=== PATIENT | male | born 1955 | race Caucasian/White ===

== ENCOUNTER 2019-08-23 08:07 | Outpatient (CLI) | payer MEDICARE, SELFPAY ==
[2019-08-23 17:21] LABS: Basophils Percent Auto 0.4 % (0.2-1.2); Eosinophils Absolute Auto 0.1 K/mm3 (0-0.3); Eosinophils Percent Auto 1.6 % (0-4.4); Hemoglobin 13.9 g/dL (14.0-18.0); Immature Granulocyte Absolute 0.04 K/mm3 (0.00-0.031); Immature Granulocyte Percent A 0.4 % (0-0.5); Lymphocytes Absolute Auto 2.33 K/mm3 (0.9-3.2); Lymphocytes Percent Auto 26.2 % (18.3-44.2); Mean Corpuscular HGB Conc 32.3 g/dl (32-36); Mean Corpuscular Hemoglobin 29.1 pg (26-34); Mean Corpuscular Volume 90.1 fl (80-100); Mean Platelet Volume 9.9 fl (7.4-10.4); Monocytes Absolute Auto 0.7 K/mm3 (0.1-0.6); Monocytes Percent Auto 7.4 % (2.6-8.5); Neutrophils Absolute Auto 5.7 K/mm3 (1.3-6.7); Platelet Count Result 312 k/mm3 (150-375); Red Blood Count 4.77 M/mm3 (4.6-6.20); Red Cell Distribution Width 13.5 % (11.5-14.5); White Blood Count 8.9 K/mm3 (4.5-10.0)
[2019-08-23 17:23] LABS: Add Urine Microscopic? NO; Appearance Urine Clear (Clear); Bilirubin Urine Negative (Negative); Blood Urine Negative (Negative); Color Urine Yellow (Yellow); Glucose Urine UA Negative (Negative); Ketones Urine Negative (Negative); Leukocyte Esterase Ur Negative LEU/UL (Negative); Nitrate Urine Negative (Negative); Protein Urine Negative (Negative); Urobilinogen Urine Negative mg/dL (<2.0)
[2019-08-23 17:26] LABS: Specific Grav Ur 1.031 (1.001-1.035)
[2019-08-23 17:28] LABS: Alanine Aminotransferase 19 U/L (4-50); Albumin Level 4.2 g/dL (3.5-5.1); Alkaline Phosphatase 50 U/L (38-126); Aspartate Amino Transferase 22 U/L (17-59); Bilirubin,Total 0.4 mg/dL (0.2-1.3); Blood Urea Nitrogen 20 mg/dL (9-20); Carbon Dioxide 23 mmol/L (22-30); Chloride 109 mmol/L (98-107); Cholesterol 136 mg/dL (0-200); Estimated Glomerular Filt Rate > 60; Glucose 107 mg/dL (75-110); HDL Direct 36 mg/dL; Potassium 4.6 mmol/L (3.4-5.0); Sodium 139 mmol/L (137-145); Triglycerides 98 mg/dL (<150)
[2019-08-23 17:38] LABS: LDL Cholesterol Direct 86 mg/dL
[2019-08-23 17:44] LABS: Vitamin D 25 Hydroxy 23.4 ng/mL
[2019-08-23 18:33] LABS: Folic Acid 8.6 ng/mL (2.76->20)
[2019-08-23 18:59] LABS: IFOB Positive Control Positive; Immunochemical Fecal Occult Bl Negative (N)
[2019-08-26 14:39] LABS: Testosterone Free 37.7 pg/mL (35.0-155.0); Testosterone Total 304 ng/dL (250-1100)
== END 2019-08-23 08:08 | disposition home or self-care (01) ==
PROVIDERS: PCP Family Medicine; Visit Provider Family Medicine
DX: I51.9 Heart disease, unspecified (principal); R53.83 Other fatigue; I35.0 Nonrheumatic aortic (valve) stenosis; F32.9 Major depressive disorder, single episode, unspecified; R09.89 Other specified symptoms and signs involving the circulatory and respiratory systems; Z82.62 Family history of osteoporosis; J44.9 Chronic obstructive pulmonary disease, unspecified; I10 Essential (primary) hypertension; Z79.899 Other long term (current) drug therapy
CPT/HCPCS: 36415; 80053; 80061; 81003; 82274; 82306; 82607; 82746; 84402; 84403; 84443; 85025

== ENCOUNTER 2021-04-17 15:22 | Outpatient (CLI) | payer MEDICARE, SELFPAY ==
[2021-04-17 18:36] LABS: T4 Thyroxine 7.22 ug/dL (5.53-11.0)
[2021-04-17 18:50] LABS: Prostate Specific Antigen 0.7 ng/mL (< OR = 4.0)
[2021-04-17 19:32] LABS: Vitamin D 25 Hydroxy 36.6 ng/mL
[2021-04-20 07:52] LABS: Triiodothyronine T3 Free 3.2 pg/mL (2.3-4.2)
== END 2021-04-17 15:23 | disposition home or self-care (01) ==
PROVIDERS: PCP Family Medicine; Visit Provider Family Medicine
DX: E03.9 Hypothyroidism, unspecified (principal); F17.200 Nicotine dependence, unspecified, uncomplicated; F32.9 Major depressive disorder, single episode, unspecified; I35.0 Nonrheumatic aortic (valve) stenosis; I51.9 Heart disease, unspecified; I73.9 Peripheral vascular disease, unspecified; J44.9 Chronic obstructive pulmonary disease, unspecified; R53.83 Other fatigue; Z95.5 Presence of coronary angioplasty implant and graft; E55.9 Vitamin D deficiency, unspecified; Z12.5 Encounter for screening for malignant neoplasm of prostate
CPT/HCPCS: 36415; 82306; 84153; 84436; 84443; 84481; G0103

== ENCOUNTER 2021-08-28 00:21 | Day surgery (SDC) | payer MEDICARE, SELFPAY ==
[2021-08-20 15:46] VITALS: BMI 26.0
--- NOTE | 2021-08-27 17:38 | PM.HPGS ---
History of Present Illness History of Present Illness Consent: Risks, benefits, and alternatives have been discussed and questions answered. Patient agrees to proceed with procedure. Chief complaint: positive cologuard Narrative: Marcell Rubio is a 66 year old male Referred for colon cancer screening. He r underwent a Cologuard test last year that was positive Review of Systems Review of Systems: All systems reviewed & are unremarkable except as noted in HPI and below PMFSH Past Medical History Medical History COPD (chronic obstructive pulmonary disease) Depression Heart disease Hernia Hypertension Surgical History Surgical History Stented coronary artery Family History Family History Mother Lung cancer Father H/O asbestosis Social History Social History Smoking packs per day: 2 Smoking cigarettes per day: 40.0 Years smoked: 40 Smoking pack-years: 80.00 Smoking status: Current every day smoker Tobacco type: cigarettes Alcohol intake: never Substance use: never Substance use type: does not use Living arrangements: with family Spiritual care concerns: No Meds Home Medications and Allergies Home Medications Medication Instructions Recorded Confirmed Type albuterol sulfate 90 mcg/actuation 1 puff INHALATION Q4H PRN 08/22/19 08/20/21 History aerosol inhaler aspirin 81 mg tablet,delayed 81 mg PO DAILY 08/22/19 08/20/21 History release atorvastatin 40 mg tablet 40 mg PO DAILY 08/22/19 08/20/21 History clopidogrel 75 mg tablet 75 mg PO DAILY 08/22/19 08/28/21 History lisinopril 10 mg tablet 10 mg PO DAILY #90 tablet 02/19/21 08/20/21 Rx liothyronine 5 mcg tablet 5 mcg PO DAILY #90 tablet 06/03/21 08/20/21 Rx Adults Multivitamin 1 cap PO DAILY 08/20/21 08/20/21 History venlafaxine 75 mg PO QAM 08/20/21 08/20/21 History Allergies Allergy/AdvReac Type Severity Reaction Status Date / Time No Known Allergies Allergy Unverified 08/28/21 09:53 Exam Resp: Auscultation: clear to auscultation bilaterally Cardio: Rate: regular rate Rhythm: regular rhythm GI: GI Palp: Yes Soft to palpation and No Tenderness to palpation present (GI) Assessment and Plan Assessment and plan (1) Colon cancer screening: Code(s): Z12.11 - Encounter for screening for malignant neoplasm of colon Status: Acute Assessment and Plan: Colonoscopy with possible biopsy or polypectomy or cautery or injection of substances.
[2021-08-28 09:54] VITALS: BP 141/70; PULSE 84; RESP 16; TEMP 37.3; O2SAT 98
[2021-08-28] MEDS: LACTATED RINGERS 1,000 ML 150 ML IV CONT (10:03)
--- NOTE | 2021-08-28 10:18 | P.PNAN_ITS ---
Anes - Initial Pre Proc Eval Procedure: Operation Date: 08/28/21 11:00 Proposed Procedures p Colonoscopy - Chava Thibodeaux MD Date/Time: 08/28/21 10:18 Surgeon: Chava Thibodeaux MD Pre Op Diagnosis: positive cologuard Patient Data Age: 66 Gender: M Height: 1.75 m Weight: 76.3 kg Last Vital Signs Temp 37.3 C 08/28/21 09:54 Pulse 84 08/28/21 09:54 Resp 16 08/28/21 09:54 BP 141/70 H 08/28/21 09:54 Pulse Ox 98 08/28/21 09:54 Allergies Allergy/AdvReac Type Severity Reaction Status Date / Time No Known Allergies Allergy Unverified 08/28/21 09:53 Home Medications Medication Instructions Recorded Confirmed Type albuterol sulfate 90 mcg/actuation 1 puff INHALATION Q4H PRN 08/22/19 08/20/21 History aerosol inhaler aspirin 81 mg tablet,delayed 81 mg PO DAILY 08/22/19 08/20/21 History release atorvastatin 40 mg tablet 40 mg PO DAILY 08/22/19 08/20/21 History clopidogrel 75 mg tablet 75 mg PO DAILY 08/22/19 08/28/21 History lisinopril 10 mg tablet 10 mg PO DAILY #90 tablet 02/19/21 08/20/21 Rx liothyronine 5 mcg tablet 5 mcg PO DAILY #90 tablet 06/03/21 08/20/21 Rx Adults Multivitamin 1 cap PO DAILY 08/20/21 08/20/21 History venlafaxine 75 mg PO QAM 08/20/21 08/20/21 History Patient hx anesthesia problems: none Family hx anesthesia problems: none Results Review: All pre-operative results and documents have been reviewed as part of the pre-operative evaluation. [facility] [place] Past Medical History Medical History COPD (chronic obstructive pulmonary disease) Depression Heart disease Hernia Hypertension Surgical History Surgical History Stented coronary artery Family History Family History Mother Lung cancer Father H/O asbestosis Social History Social History Smoking packs per day: 2 Smoking cigarettes per day: 40.0 Years smoked: 40 Smoking pack-years: 80.00 Smoking status: Current every day smoker Tobacco type: cigarettes Alcohol intake: never Substance use: never Substance use type: does not use Living arrangements: with family Spiritual care concerns: No Anes - Eval Final PreProcedure Day of Procedure 08/28/21 10:18 Patient weight: normal Heart: regular rate and rhythm and murmur (II/ SM) Lungs: clear to auscultation and wheezes Airway: Mallampati scale class II Neurological: alert and oriented Last oral intake: >/= 8 hours ASA classification: III Emergent: no Anesthetic plan: proceed Anesthesia type and monitoring: general GIVS and standard monitoring Results Review: All pre-operative results and documents have been reviewed as part of the pre-operative evaluation. Informed Consent: The patient's anesthetic plan and its attendant risks and benefits were discussed with the patient/family/POA. Questions were solicited and answers provided to the satisfaction of the patient/family/POA.
[2021-08-28 11:18] VITALS: BP 146/76; PULSE 70; RESP 22; O2SAT 99
[2021-08-28 11:28] VITALS: BP 149/73; PULSE 69; RESP 21; O2SAT 98
[2021-08-28 11:38] VITALS: BP 155/77; PULSE 66; RESP 16; O2SAT 99
== END 2021-08-28 11:46 | disposition home or self-care (01) ==
PROVIDERS: PCP Family Medicine; Visit Provider Internal Medicine Gastroenterology
PROC: 0DJD8ZZ Inspection of Lower Intestinal Tract, Via Natural or Artificial Opening Endoscopic (ICD-10-PCS; CPT 45378; principal; 2021-08-28 11:00)
DX: Z12.11 Encounter for screening for malignant neoplasm of colon (principal); K57.30 Diverticulosis of large intestine without perforation or abscess without bleeding; R19.5 Other fecal abnormalities; I11.9 Hypertensive heart disease without heart failure; J44.9 Chronic obstructive pulmonary disease, unspecified; F32.9 Major depressive disorder, single episode, unspecified; Z95.5 Presence of coronary angioplasty implant and graft; F17.210 Nicotine dependence, cigarettes, uncomplicated; Z79.82 Long term (current) use of aspirin; Z79.51 Long term (current) use of inhaled steroids; Z79.02 Long term (current) use of antithrombotics/antiplatelets
CPT/HCPCS: G0121; J2704; J7120

== ENCOUNTER 2022-07-10 13:27 | Outpatient (CLI) | payer MEDICARE, SELFPAY ==
[2022-07-10 19:29] LABS: Hematocrit 44.4 % (42.0-52.0); Hemoglobin 14.6 g/dL (14.0-18.0); Mean Corpuscular HGB Conc 32.9 g/dl (32-36); Mean Corpuscular Hemoglobin 29.4 pg (26-34); Mean Corpuscular Volume 89.3 fl (80-100); Mean Platelet Volume 10.1 fl (7.4-10.4); Platelet Count Result 256 k/mm3 (150-375); Red Blood Count 4.97 M/mm3 (4.6-6.20); Red Cell Distribution Width 14.1 % (11.5-14.5); White Blood Count 7.1 K/mm3 (4.5-10.0)
[2022-07-10 20:10] LABS: Alanine Aminotransferase 29 U/L (6-50); Albumin Level 3.9 g/dL (3.5-5.1); Alkaline Phosphatase 56 U/L (38-126); Anion Gap 4 mmol/L (8-16); Aspartate Amino Transferase 42 U/L (17-59); Bilirubin,Total 0.4 mg/dL (0.2-1.3); Blood Urea Nitrogen 14 mg/dL (9-20); Calcium 8.3 mg/dL (8.4-10.2); Carbon Dioxide 30 mmol/L (22-30); Chloride 110 mmol/L (98-107); Cholesterol 95 mg/dL (0-200); Estimated Glomerular Filt Rate > 60; Glucose 108 mg/dL (65-110); HDL Direct 30 mg/dL; Potassium 3.7 mmol/L (3.4-5.0); Sodium 144 mmol/L (137-145); Triglycerides 147 mg/dL (<150)
[2022-07-10 20:20] LABS: LDL Cholesterol Direct 43 mg/dL
== END 2022-07-10 13:28 | disposition home or self-care (01) ==
PROVIDERS: PCP Family Medicine; Visit Provider Family Medicine
DX: E03.9 Hypothyroidism, unspecified (principal); I10 Essential (primary) hypertension; J44.9 Chronic obstructive pulmonary disease, unspecified; Z95.5 Presence of coronary angioplasty implant and graft
CPT/HCPCS: 36415; 80053; 80061; 84443; 85027

== ENCOUNTER 2022-11-24 10:55 | Outpatient (CLI) | payer MEDICARE, SELFPAY ==
[2022-11-24 19:02] LABS: Basophils Percent Auto 0.4 % (0.2-1.2); Eosinophils Absolute Auto 0.1 K/mm3 (0-0.3); Eosinophils Percent Auto 1.4 % (0-4.4); Hematocrit 48.6 % (42.0-52.0); Hemoglobin 15.3 g/dL (14.0-18.0); Immature Granulocyte Absolute 0.03 K/mm3 (0.00-0.031); Immature Granulocyte Percent A 0.4 % (0-0.5); Lymphocytes Absolute Auto 2.18 K/mm3 (0.9-3.2); Mean Corpuscular HGB Conc 31.5 g/dl (32-36); Mean Corpuscular Hemoglobin 29.1 pg (26-34); Mean Corpuscular Volume 92.4 fl (80-100); Mean Platelet Volume 10.3 fl (7.4-10.4); Monocytes Absolute Auto 0.7 K/mm3 (0.1-0.6); Monocytes Percent Auto 8.2 % (2.6-8.5); Neutrophils Absolute Auto 5.4 K/mm3 (1.3-6.7); Neutrophils Percent Auto 63.6 % (45.5-73.1); Platelet Count Result 264 k/mm3 (150-375); Red Blood Count 5.26 M/mm3 (4.6-6.20); Red Cell Distribution Width 14.3 % (11.5-14.5); White Blood Count 8.4 K/mm3 (4.5-10.0)
[2022-11-24 21:01] LABS: Alanine Aminotransferase 30 U/L (6-50); Albumin Level 4.4 g/dL (3.5-5.1); Alkaline Phosphatase 57 U/L (38-126); Anion Gap 4 mmol/L (8-16); Aspartate Amino Transferase 55 U/L (17-59); Bilirubin,Total 0.6 mg/dL (0.2-1.3); Blood Urea Nitrogen 20 mg/dL (9-20); Calcium 9.1 mg/dL (8.4-10.2); Carbon Dioxide 33 mmol/L (22-30); Chloride 107 mmol/L (98-107); Cholesterol 101 mg/dL (0-200); Estimated Glomerular Filt Rate > 60; Glucose 100 mg/dL (65-110); HDL Direct 33 mg/dL; Potassium 5.1 mmol/L (3.4-5.0); Sodium 144 mmol/L (137-145); Triglycerides 90 mg/dL (<150)
[2022-11-24 21:12] LABS: LDL Cholesterol Direct 51 mg/dL
[2022-11-24 21:23] LABS: Vitamin D 25 Hydroxy 24.5 ng/mL
[2022-11-24 21:30] LABS: Prostate Specific Antigen 0.6 ng/mL (< OR = 4.0)
[2022-11-29 10:21] LABS: Testosterone Free 35.3 pg/mL (35.0-155.0); Testosterone Total 307 ng/dL (250-1100)
== END 2022-11-24 10:56 | disposition home or self-care (01) ==
PROVIDERS: PCP Family Medicine; Visit Provider Family Medicine
DX: R91.8 Other nonspecific abnormal finding of lung field (principal); F17.210 Nicotine dependence, cigarettes, uncomplicated; E03.9 Hypothyroidism, unspecified; Z95.5 Presence of coronary angioplasty implant and graft; R09.89 Other specified symptoms and signs involving the circulatory and respiratory systems; I35.0 Nonrheumatic aortic (valve) stenosis; R53.83 Other fatigue; J44.9 Chronic obstructive pulmonary disease, unspecified; I10 Essential (primary) hypertension; F32.9 Major depressive disorder, single episode, unspecified; Z12.5 Encounter for screening for malignant neoplasm of prostate; E55.9 Vitamin D deficiency, unspecified
CPT/HCPCS: 36415; 80053; 80061; 82306; 84153; 84402; 84403; 84443; 85025; G0103

== ENCOUNTER 2023-03-04 09:04 | Outpatient (CLI) | payer MEDICARE, SELFPAY ==
[2023-03-08 16:47] LABS: Testosterone Free 46.9 pg/mL (35.0-155.0); Testosterone Total 388 ng/dL (250-1100)
== END 2023-03-04 09:05 | disposition home or self-care (01) ==
PROVIDERS: PCP Family Medicine; Visit Provider Family Medicine
DX: R79.89 Other specified abnormal findings of blood chemistry (principal); Z87.891 Personal history of nicotine dependence
CPT/HCPCS: 36415; 84402; 84403

== ENCOUNTER 2023-06-22 10:48 | Outpatient (CLI) | payer MEDICARE, SELFPAY ==
[2023-06-22 18:44] LABS: Mean Corpuscular HGB Conc 31.9 g/dl (32-36); Mean Corpuscular Hemoglobin 29.5 pg (26-34); Mean Corpuscular Volume 92.3 fl (80-100); Mean Platelet Volume 9.7 fl (7.4-10.4); Platelet Count Result 282 k/mm3 (150-375); Red Blood Count 5.09 M/mm3 (4.6-6.20); Red Cell Distribution Width 13.6 % (11.5-14.5); White Blood Count 8.7 K/mm3 (4.5-10.0)
[2023-06-22 20:58] LABS: Alanine Aminotransferase 27 U/L (6-50); Albumin Level 4.2 g/dL (3.5-5.1); Alkaline Phosphatase 55 U/L (38-126); Anion Gap 6 mmol/L (8-16); Aspartate Amino Transferase 60 U/L (17-59); Bilirubin,Total 0.6 mg/dL (0.2-1.3); Blood Urea Nitrogen 18 mg/dL (9-20); Calcium 8.9 mg/dL (8.4-10.2); Carbon Dioxide 29 mmol/L (22-30); Chloride 104 mmol/L (98-107); Estimated Glomerular Filt Rate > 60; Glucose 96 mg/dL (65-110); Potassium 4.4 mmol/L (3.4-5.0); Sodium 139 mmol/L (137-145); Vitamin D 25 Hydroxy 17.7 ng/mL
[2023-06-25 21:06] LABS: Testosterone Free 63.1 pg/mL (35.0-155.0); Testosterone Total 410 ng/dL (250-1100)
== END 2023-06-22 10:49 | disposition home or self-care (01) ==
PROVIDERS: PCP Family Medicine; Visit Provider Family Medicine
DX: J44.9 Chronic obstructive pulmonary disease, unspecified (principal); E55.9 Vitamin D deficiency, unspecified; I35.0 Nonrheumatic aortic (valve) stenosis; I51.9 Heart disease, unspecified; I10 Essential (primary) hypertension; E03.9 Hypothyroidism, unspecified; K46.9 Unspecified abdominal hernia without obstruction or gangrene; Z95.5 Presence of coronary angioplasty implant and graft; F17.200 Nicotine dependence, unspecified, uncomplicated; R79.89 Other specified abnormal findings of blood chemistry
CPT/HCPCS: 36415; 80053; 82306; 84402; 84403; 84443; 85027

== ENCOUNTER 2023-12-28 13:58 | Outpatient (CLI) | payer MEDICARE, SELFPAY ==
--- NOTE | ~2023-12-28 | XR_ITS ---
XR shoulder RT min 2V Ordering provider: Nehal Siu APRN History: . Right shoulder pain, limited movement, no injury . Comparison: None. FINDINGS: BONES: No acute fracture or dislocation. JOINT SPACES: The acromioclavicular joint shows osteoarthritic changes. The glenohumeral joint is nor mal. SOFT TISSUES: Normal. IMPRESSION: No acute osseous abnormality right shoulder. Reviewed, dictated and finalized at location A.
[2023-12-28 19:48] LABS: Hematocrit 46.3 % (42.0-52.0); Hemoglobin 14.6 g/dL (14.0-18.0); Mean Corpuscular HGB Conc 31.5 g/dl (32-36); Mean Corpuscular Hemoglobin 30.3 pg (26-34); Mean Corpuscular Volume 96.1 fl (80-100); Mean Platelet Volume 10.4 fl (7.4-10.4); Platelet Count Result 269 k/mm3 (150-375); Red Blood Count 4.82 M/mm3 (4.6-6.20); White Blood Count 13.6 K/mm3 (4.5-10.0)
[2023-12-28 19:54] LABS: Appearance Urine Clear (Clear); Bilirubin Urine Negative (Negative); Blood Urine Negative (Negative); Color Urine Yellow (Yellow); Glucose Urine UA Negative (Negative); Ketones Urine Negative (Negative); Leukocyte Esterase Ur Negative LEU/UL (Negative); Nitrate Urine Negative (Negative); Protein Urine Negative (Negative)
[2023-12-28 20:07] LABS: Add Urine Microscopic? NO
[2023-12-28 20:59] LABS: Prostate Specific Antigen 0.6 ng/mL (< OR = 4.0)
[2023-12-28 22:20] LABS: Vitamin D 25 Hydroxy 37.8 ng/mL
[2023-12-28 22:53] LABS: Alanine Aminotransferase 17 U/L (6-50); Albumin Level 4.8 g/dL (3.5-5.1); Alkaline Phosphatase 59 U/L (38-126); Anion Gap 10 mmol/L (4-12); Aspartate Amino Transferase 32 U/L (17-59); Bilirubin,Total 0.5 mg/dL (0.2-1.3); Blood Urea Nitrogen 27 mg/dL (9-20); Calcium 9.6 mg/dL (8.4-10.2); Carbon Dioxide 28 mmol/L (22-30); Chloride 103 mmol/L (98-107); Cholesterol 126 mg/dL (0-200); Estimated Glomerular Filt Rate > 60; Glucose 99 mg/dL (65-110); HDL Direct 44 mg/dL; Potassium 4.5 mmol/L (3.4-5.0); Sodium 141 mmol/L (137-145); Triglycerides 167 mg/dL (<150)
[2023-12-28 23:00] LABS: LDL Cholesterol Direct 67 mg/dL
== END 2023-12-28 13:59 | disposition home or self-care (01) ==
PROVIDERS: PCP Family Medicine; Visit Provider Nurse Practitioner Family
DX: M25.511 Pain in right shoulder (principal); E55.9 Vitamin D deficiency, unspecified; Z12.5 Encounter for screening for malignant neoplasm of prostate; E03.9 Hypothyroidism, unspecified; Z95.5 Presence of coronary angioplasty implant and graft; F17.200 Nicotine dependence, unspecified, uncomplicated; I73.9 Peripheral vascular disease, unspecified; R09.89 Other specified symptoms and signs involving the circulatory and respiratory systems; I35.0 Nonrheumatic aortic (valve) stenosis; I10 Essential (primary) hypertension; F32.9 Major depressive disorder, single episode, unspecified; J44.9 Chronic obstructive pulmonary disease, unspecified; R91.8 Other nonspecific abnormal finding of lung field; R19.5 Other fecal abnormalities; Z79.899 Other long term (current) drug therapy
CPT/HCPCS: 36415; 73030; 80053; 80061; 81003; 82306; 84153; 84443; 85027; G0103

== ENCOUNTER 2025-01-02 10:48 | Outpatient (CLI) | payer MEDICARE, SELFPAY ==
--- OUTSIDE RECORDS SUMMARY | 2025-01-02 10:53 | XMS_ITS | Clinical Summary ---
Author Organization [facility] Address [address] [place] [address] Phone Care Team Providers Care Drainage Engineer Name Role Phone Marcell Euceda DO Primary Care Provider [phone] Social History Tobacco Use Types Packs/Day Years Used Date Smoking Tobacco: Never Assessed Sex and Gender Information Value Date Recorded Sex Assigned at Not on file Legal Sex Male 8:41 PM CDT Gender Identity Not on file Sexual Orientation Not on file Plan of Treatment Health Maintenance Due Date Last Done Comments Hepatitis C Virus (HCV) Screening 1955 TdaP Immunization 1955 Cologuard 1999 Colonoscopy 1999 Colorectal Cancer Screening 1999 Immunochemical Fecal Occult Blood 1999 Pneumococcal Immunization (5 0+ years) (1 of 1 - PCV) 01/07/2004 Zoster Immunization (1 of 2) 01/07/2004 SARS-COV-2 Immunization ( season) 2024 05/18/2021, 09/13/2020, 08/15/2020 Influenza Immunization (#1) 2025 Respiratory Syncytial Virus (RSV) Immunization (Adult) (1 - 1-dose 75+ series) 2029 Hepatitis B Immunization Aged Out No longer eligible based on patient's age to complete this topic Human Papillomavirus (HPV) Immunization Aged Out No longer eligible b ased on patient's age to complete this topic Meningococcal Immunization (ACWY) Aged Out No longer eligible b ased on patient's age to complete this topic Rotavirus Immunization Aged Out No lo nger eligible based on patient's age to complete this topic Insurance MEDICARE [facility] on file Care Teams Drainage Engineer Relationship Specialty Start Date End Date Marcell Euceda DO [address] [place] [address] PCP - General Family Medicine 02/24/20
--- OUTSIDE RECORDS SUMMARY | 2025-01-02 10:53 | XMS_ITS | Clinical Summary ---
Author Organization [facility] Address [address] [place] [address] Care Team Providers Care Aviation Engineer Name Role Phone Terell Canela DO Unavailable [phone] Srinivasan Jones MD Unavailable [phone] Marietta Aviles MD Unavailable [phone] Michael Heredia MD Primary Care Provider [phone] Nany Esquivel MD Unavailable [phone] Allergies No known active allergies Medications albuterol HFA (VENTOLIN HFA) 90 mcg/actuation inhalerIndicati ons:Simple chronic bronchitis (HCC) Inhale 2 puffs every 4 (four) hours as needed for wheezing or shortness of breath. 8 g 5 8 Active aspirin 81 mg enteric coated tablet Take 1 tablet (81 mg total) by mouth daily Active liothyronine (CYTOMEL) 5 mcg tablet Take 1 tablet (5 mcg total) by mouth daily Active venlafaxine XR (EFFEXOR-XR) 75 mg 24 hr capsule Take 1 capsule (75 mg total) by mouth daily 2 Active multivitamin capsule Take 1 capsule by mouth daily Active acetaminophen (TYLENOL) 325 mg tablet Take 2 tablets (650 mg total) by mouth every 6 (six) hours as needed (pain) 60 tablet 2 Active traMADoL (ULTRAM) 50 mg tablet Take 1 tablet (50 mg total) by mouth every 4 (four) hours as needed (pain not relieved by tylenol) 27 tablet 2 Active Additional Information Patient not taking.Reported on 01/27/2022 ezetimibe (ZETIA) 10 mg tablet TAKE 1 TABLET(10 MG) BY MOUTH DAILY 30 tablet 11 3 Active lisinopriL (PRINIVIL,ZESTR IL) 5 mg tablet TAKE 2 TABLETS(10 MG) BY MOUTH DAILY 90 tablet 3 4 Active clopidogreL (PLAVIX) 75 mg tablet TAKE 1 TABLET(75 MG) BY MOUTH DAILY 90 tablet 2 4 Active atorvastatin (LIPITOR) 40 mg tablet TAKE 1 TABLET(40 MG) BY MOUTH DAILY 90 tablet 3 5 Active metoprolol tartrate (LOPRESSOR) 25 mg immediate release tablet Take 0.5 tablets (12.5 mg total) by mouth 2 (two) times a day 90 tablet 3 5 Active Active Problems Problem Noted Date Diagnosed Date S/P AVR (aortic valve replacement) 01/27/2022 SOB (shortness of breath) 02/17/2020 Assessment & Plan (02/17/2020 10:32 AM CDT): I plan to further investigate his dyspnea with proBNP value. If this is normal I plan no further cardiovascular evaluation. Bilateral carotid artery stenosis 02/16/2020 Assessment & Plan (02/22/2021 11:03 AM CDT): Patient remains asymptomatic with his carotid disease but I will re-evaluate this with carotid ultrasound as it has been 3 years since we have looked at this Assessment & Plan (02/17/2020 10:32 AM CDT): Patient's carotid ultrasound test was delayed by COVID-19 policies in the radiology department. We will get this rescheduled in call him with those results if no additional attention is required. Smoker 08/15/2019 Assessment & Plan (02/22/2021 11:02 AM CDT): I again stressed the importance of smoking cessation. Because the patient was interested in stopping I spent about 12-15 minutes discussing the importance of smoking and establishing a plan for success. Patient appears mildly motivated toward success. Assessment & Plan (02/17/2020 10:33 AM CDT): I again stressed the importance of smoking cessation. Because the patient was interested in stopping I spent about 12-15 minutes discussing the importance of smoking and establishing a plan for success. Patient appears mildly motivated toward success. Old AR (myocardial infarction) 08/15/2019 Mixed hyperlipidemia 08/15/2019 Presence of drug coated stent in LAD coronary ar susan 08/15/2019 Overview (08/15/2019): LAD FRANNIE using 2.75 x 12 mm synergy stent overlapping with a 2.75 x 8 mm synergy stent(Complicated by plaque shift occluding D1 recanalized restoring flow with 2.25 mm balloon ) Presence of drug coated sten t in left circumflex coronary artery 08/15/2019 Overview (08/15/2019): circumflex FRANNIE using 3.0 x 12 mm synergy stent H/O non-ST elevation myocardial infarction (NSTE AR) 03/18/2018 Assessment & Plan (03/18/2018 4:03 PM CDT): Asx. Managed by Cardiology. Coronary artery disease invo lving [place] coronary artery of [place] heart without angina pectoris 03/18/2018 Assessment & Plan (02/22/2021 11:03 AM CDT): Patient remains free of any symptoms to suggest angina or heart failure. He will continue with aggressive secondary risk factor modification. We did address smoking cessation again today. Assessment & Plan (02/17/2020 10:32 AM CDT): Patient remains free of any symptoms to suggest angina. He will continue with aggressive secondary risk factor modification. In June 2018 his LDL cholesterol was 50. A plan to update this with a more recent lipid profile. Assessment & Plan (03/18/2018 4:03 PM CDT): Coronary artery disease is unchanged. Continue current treatment regimen. Stop smoking. Medication changes per orders. Cardiac status will be reassessed at next [place] appt. Cont Brilinta 90 mg bid, carvedilol 3.125mg bid. lipitor 40mg qd Chronic obstructive pulmonary disease 2014 Overview (09/18/2016): Chronic obstructive lung disease Assessment & Plan (03/18/2018 4:04 PM CDT): COPD is At baseline. Re-start albuterol hfa inh 2 puffs q4h prn. Referred to Pulmonary. Warning signs of respiratory distress were reviewed with the patient. Counseled to avoid exposure to cigarette smoke. Aortic valve stenosis 12/05/2013 Overview (09/18/2016): Aortic stenosis Assessment & Plan (02/22/2021 11:02 AM CDT): Plan to reassess the patient's aortic valve disease is this is not been looked at in the last 3 years. Assessment & Plan (01/31/2018 6:38 AM CDT): Will get repeat echocardiogram to reassess aortic stenosis progression. Cigarette nicotine dependence without complicati on 10/29/2013 Overview (09/18/2016): Tobacco abuse Assessment & Plan (03/18/2018 4:05 PM CDT): Tobacco use is improving with lifestyle modifications. Smoking cessation counseling was provided. Pharmacotherapy was prescribed as ordered. Tobacco use will be reassessed at the next regular appointmentbupropion xl 150 mg qd. Assessment & Plan (01/31/2018 6:38 AM CDT): Discussed tobacco cessation. Will start on Nicoderm patch Discussed Patient will need a screening for lung cancer with a CT of the chest with IV contrast . Will get aortic ultrasound to screen for AAA Moderate episode of recurrent major depressive d isorder 10/29/2013 Overview (09/18/2016): DEPRESSIVE DISORDER NEC Assessment & Plan (03/18/2018 3:58 PM CDT): Psychological condition is worsening. Medication changes per orders. Referral to psychiatry. Psychological condition will be reassessed at the next regular appointment. New start on bupropion xl to help with depression and smoking cessation. Patient referred to Psychiatry for further eval/mgmt. Essential hypertension 10/29/2013 Overview (09/18/2016): Hypertension Assessment & Plan (03/18/2018 4:01 PM CDT): Hypertension is improving with treatment. Dietary sodium restriction. Medication changes per orders. Blood pressure will be reassessed at the next regular appointment. Re-start bp meds lisinopril 5mg po qd, carvedilol 3.125 mg bid Assessment & Plan (01/31/2018 6:36 AM CDT): Blood pressure elevated. Will start on Coreg Low level of high density lipoprotein (HDL) 10/13 Adenomatous polyp of colon 12/15/2012 Overview (09/19/2016): Adenomatous colon polyp Resolved Problems Problem Noted Date Diagnosed Date Resolved Date Precordial pain 01/31/2018 03/18/2018 Assessment & Plan (01/31/2018 6:42 AM CDT): Patient presented with precordial chest pain which responded to the nitroglycerin and aspirin. First set of troponins were negative. First EKG was normal. The Repeat troponins came back positive. Patient reported that pain is almost gone. Will start on heparin drip. Repeat EKG in a.m.. Cardiology consult. If any dynamic changes of the EKG with ST elevation patient will need to be transferred to the tertiary center for cardiac catheterization lab. Subjective carotid bruit 10/29/201308/2019 Overview (09/18/2016): Left carotid bruit Acute chest pain 03/18/2018 Chest heaviness 03/18/2018 Immunizations Immunization Administration Dates Next Due Influenza, Quadrivalent, Spl it, Preservative Free, Intramuscular 03/18/2018 Influenza, Unspecified 06/03/2017 Pneumococcal Conjugate PCV 13 03/18/2018 Pneumococcal Polysaccharide PPV23 10/22/2009 Td, adsorbed 06/15/2005 Tdap 03/18/2018 Surgical History Surgery Date Site/Laterality Comments CARPAL TUNNEL RELEASE Bilateral Carpal tunnel release KNEE ARTHROSCOPY Right Arthroscopy knee CHOLECYSTECTOMY 06/15/1979 - 06/14/1980 Cholecystectomy ABDOMINAL HERNIA REPAIR 06/15/2006 - 06/14/2007 abdominal hernia repair OTHER SURGICAL HISTORY Skull surgery for fracture Medical History Medical History Date Comments Hx Other Medical 1990 depressed skull fracture Hx Other Medical 01-Psychiatrist Hyperlipidemia Hyperlipidemia; Comments: DNT 11/30/2013 - Hypertension Hypertension Depression Depression Heart attack (HCC) 02/2018 Coronary artery disease Motion sickness Peripheral vascular disease COPD (chronic obstructive pu lmonary disease) (HCC) Hypothyroidism Arthritis Family History Medical History Relation Name Comments Alcohol abuse Father Alessandro Rubio Alcoholism; Diabetes Father Alessandro Rubio Diabetes mellit us; Lung cancer Father Alessandro Rubio Cancer -lung; / Cancer, lung; Other Father Alessandro Rubio Cancer -asbesto s; /asbestos exposure; Cause of : asbestos exposure Depression Mother Candi Rubio Depression; Hypertension Mother Candi Rubio Hypertension; Lung cancer Mother Candi Rubio Cancer -lung; C ause of : Cancer -lung Other Mother Candi Rubio ; Relation Name Status Comments Father Alessandro Rubio Mother Candi Rubio Social History Tobacco Use Types Packs/Day Years Used Date Smoking Tobacco: Former Cigarettes 2 30 0 09/27/1991 - 09/26/2021 Smokeless Tobacco: Never Tobacco Cessation:Counseling Given: Not Answered Alcohol Use Standard Drinks/Week Comments No 0 (1 standard drink = 0.6 oz pur e alcohol) AUDIT-C Answer Date Recorded Q1: How often do you have a drink containing alc ohol? Never 12/09/2021 Average Number of Drinks Not on file 022 Q3: How often do you have si x or more drinks on one occasion? Never 12/09/2021 PHQ-2 Answer Date Recorded PHQ-2 Score 6 02/04/2019 Sex and Gender Information Value Date Recorded Sex Assigned at Not on file Legal Sex Male 7:21 PM PEDIATRIC OCCUPATIONAL THERAPIST Gender Identity Not on file Sexual Orientation Not on file Obstetrics History Last Filed Vital Signs Vital Sign Reading Time Taken Comments Blood Pressure 145/76 07/07/2024 2:02 PM PEDIATRIC OCCUPATIONAL THERAPIST Pulse 82 07/07/2024 2:02 PM PEDIATRIC OCCUPATIONAL THERAPIST Temperature 36.6 C (97.9 F) 01/22/2022 11:20 AM CDT Respiratory Rate 16 07/07/2024 2:02 PM PEDIATRIC OCCUPATIONAL THERAPIST Oxygen Saturation 97% 07/07/2024 2:02 PM PEDIATRIC OCCUPATIONAL THERAPIST Inhaled Oxygen Concentration - - Weight 83 kg (183 lb) 07/07/2024 2:02 PM PEDIATRIC OCCUPATIONAL THERAPIST Height 175.3 cm (5' 9) 07/07/2024 2:02 PM PEDIATRIC OCCUPATIONAL THERAPIST Body Mass Index 27.02 07/07/2024 2:02 PM PEDIATRIC OCCUPATIONAL THERAPIST Plan of Treatment Health Maintenance Due Date Last Done Comments Hepatitis C Screening 1955 Hepatitis B Screening 01/07/1972 Colon Cancer Screening-Colonoscopy 10/27/2018 10/27/2008 Well Visit 65+ 2019 Depression Screening 03/18/2019 03/18/2018, 03/18/20 18 Zoster Vaccine (2 of 2) 12/23/2021 10/28/2021, 04/17 Fall Risk Assessment 12/15/2022 12/15/2021 Lung Cancer Screening 03/10/2023 03/10/2022, 021 Pneumococcal vaccine 65+ (3 of 3 - PCV20 or PCV21) 03/18/2023 03/18/2018, 10/22/2009 Covid-19 Vaccine (4 - 2023-2 5 season) 2024 05/18/2021, 09/13/2020, 08/15/2020 Influenza Vaccine (#1) 2025 , 03/08/2020, 03/18/2018, Additional history exists DTaP/Tdap/Td Vaccine (2 - Td or Tdap) 03/18/2028 03/18/2018, 06/15/2005 Colon Cancer Screening-CT Colonography Discontinued 10/27/2008 Colon Cancer Screening-DNA Stool Discontinued 10/28/19 09 Colon Cancer Screening-FIT Discontinued 10/27/2008 Colon Cancer Screening-Sigmoidoscopy Discontinued 10/27/2008 Abdominal Aortic Aneurysm (A AA) Screen Completed 02/02/2023, 02/20/2022, 02/20/2022, Additional history exists Medical Devices Implanted Type Area Verse Writer Device Identifier Shelf Expiration Date Model / Serial / Lot Visual Unity Selena [id number] Synergy 3mm 12mm 144cm Radiopaque 1 Access Port Inflation Lumen - [id number] Implanted:Qty: 1 on 02/02/2018 by Srinivasan Jones MD at [facility] Stent [employer] Selena 09/28/2018 [id number] / / [id number] [employer] Selena [id number] Synergy 2.75mm 12mm 144cm Radiopaque 1 Access Port Inflation - [id number] Implanted:Qty: 1 on 02/02/2018 by Srinivasan Jones MD at [facility] [employer]ent [employer] Selena 10/13/2019 [id number] / / [id number] [employer] Selena [id number] Synergy 2.75mm 8mm 144cm Radiopaque 1 Access Port Inflation Lumen - [id number] Implanted:Qty: 1 on 02/02/2018 by Srinivasan Jones MD at [facility] Stent [employer] Selena 03/09/2018 [id number] / / [id number] Angio-Seal Evolution 6fr Vascular Closure [id number] - [id number] Implanted:Qty: 1 on 10/10/2021 by Srinivasan Jones MD at [facility] [employer] Selena 05/14/2022 [id number] / / [id number] Khalil Sapheon Vascu-Guard 6x1cm Peripheral Patch Vascular Bovine Pericardium [id number] - [id number] Implanted:Qty: 1 on 12/09/2021 by Nany Esquivel MD at [facility] Left: Carotid [employer] 03/14/2025 [id number] / / [id number] Inspiris Resilia Leaflet Aortic Valve 23mm [id number] - [id number] - [id number] Implanted:Qty: 1 on 12/09/2021 by Nany Esquivel MD at [facility] Left: Heart [employer] [id number] 08/07/2025 [id number] / [id number] / Procedures Procedure Name Priority Date/Time Associated Diagnosis Comments CT CHEST WO CONTRAST F/U LUNG SCREEN PROTOCOL Schedule Routine, Read Routine (OP Routine) 03/10/2022 5:24 PM CDT Other nonspecific abnormal finding of lung field US ABDOMINAL AORTA Schedule Routine, Read Routine (OP Routine) 02/20/2022 9:45 AM CDT Abdominal aortic aneurysm (AAA) without rupture COLONOSCOPY Routine 10/27/2008 from Last 3 Months or Most Recently Relevant to Health Maintenance Results * CT Chest WO Contrast F/U Lung Screen Protocol (03/10/2022 5:24 PM CDT) Anatomical Region Laterality Modality Chest N/A Computed Tomogra phy 03/11/2022 6:59 PM CDT Narrative 03/11/2022 7:11 PM CDT EXAM DESCRIPTION: CT CHEST WO CONTRAST F/U LUNG SCREEN PROTOCOL REASON FOR STUDY: Screening CT of the chest in a former smoker with a 60 pack year smoking history. Additional history: COPD and hypertension. Heart disease status post bypass surgery.. TECHNIQUE: Low dose CT scan of the chest was performed without intravenous contrast using helical scanning technique. The exam extends from the lung apices through the lung bases. Automatic exposure control was used as a dose optimization technique. NOTE: This study was performed for the specific purposes of lung cancer screening and is not an alternative to diagnostic chest CT. RADIATION DOSE: CT dose index volume (CTDIvol) = 1.64 mGy COMPARISON: 05/04/2021. FINDINGS: SMOKING RELATED LUNG DISEASE: There is a background of moderate pulmonary emphysema, upper lobe predominant. There are both centrilobular and paraseptal components. LUNG NODULES: Previously documented nodules are as follows: Right upper lobe 7 mm nodule, image 129, stable. Interval resolution of previously documented 4 mm right lower lobe pulmonary nodule (image 151 of prior) 6 mm nodule right middle lobe image 202, stable. 6 mm nodule right lower lobe, image 212, stable. 5 mm nodule left lower lobe image 231, previously 4 mm. 5 mm nodule left lower lobe image 210, stable. 3 mm nodule left lower lobe image 215, stable. Interval resolution of 4 mm nodule from image 141 of the prior study. 4 mm nodule posterior left lower lobe image 232, stable. OTHER: There is no pneumonic consolidation. The central airways are widely patent. There are scattered areas of scarring and atelectasis, similar to the prior examination. There is been mild interval improvement in the bronchial wall thickening demonstrated on prior examination. There is no effusion or pneumothorax. There has been interval changes related to median sternotomy and coronary artery bypass grafting. There is no mediastinal or hilar adenopathy. The esophagus is unremarkable. The heart is normal in size. There are coronary artery calcifications. Valve prosthesis is stable. The thoracic aorta is atherosclerotic without aneurysm. There is no axillary lymphadenopathy. Postsurgical changes of the midline of the chest related to recent median sternotomy. No appreciable fluid collection. Visualized upper abdomen reveals atherosclerotic vascular calcification of the aorta and major branch vessels. There is diverticulosis, without diverticulitis. There is no acute osseous abnormality. Mild compression deformity of T11 is stable. There is degenerative disc disease. IMPRESSION: 1. Previously documented pulmonary nodules are grossly stable from prior study. A single nodule in the left lower lobe measures 1 mm larger than on prior study, which does not meet criteria for interval growth. Given the interval stability patient return to yearly screening LD CT. 2. Background of moderate pulmonary emphysema, upper lobe predominant. 3. Several incidental findings as above. Lung-RADS v1.1 category 2: Benign appearance or behavior. Recommendation: Continue annual screening low-dose chest CT in 12 months. THIS IS AN ELECTRONICALLY VERIFIED FINAL REPORT 03/11/2022 7:11 PM - Electronically signed by Linda Wolf M.D. TW: TW Report ID: [id number] Reading Location: [id number] Procedure Note Linda Wolf MD - 03/11/2022 EXAM DESCRIPTION: CT CHEST WO CONTRAST F/U LUNG SCREEN PROTOCOL REASON FOR STUDY: Screening CT of the chest in a former smoker with a60 pack year smoking history. Additional history: COPD and hypertension.Heart disease status post bypass surgery.. TECHNIQUE: Low dose CT scan of the chest was performed without intravenous contrast using helical scanning technique. The exam extends from the lung apices through the lung bases. Automatic exposure control was used as adose optimization technique. NOTE: This study was performed for the specific purposes of lung cancer screening and is not an alternative to diagnostic chest CT. RADIATION DOSE: CT dose index volume (CTDIvol) = 1.64 mGy COMPARISON: 05/04/2021. FINDINGS: SMOKING RELATED LUNG DISEASE: There is a background of moderatepulmonary emphysema, upper lobe predominant. There are both centrilobular and paraseptal components. LUNG NODULES: Previously documented nodules are as follows: Right upper lobe 7 mm nodule, image 129, stable. Interval resolution of previously documented 4 mm right lower lobepulmonary nodule (image 151 of prior) 6 mm nodule right middle lobe image 202, stable. 6 mm nodule right lower lobe, image 212, stable. 5 mm nodule left lower lobe image 231, previously 4 mm. 5 mm nodule left lower lobe image 210, stable. 3 mm nodule left lower lobe image 215, stable. Interval resolution of 4 mm nodule from image 141 of the prior study. 4 mm nodule posterior left lower lobe image 232, stable. OTHER: There is no pneumonic consolidation. The central airways arewidely patent. There are scattered areas of scarring and atelectasis, similar tothe prior examination. There is been mild interval improvement in thebronchial wall thickening demonstrated on prior examination. There is no effusionor pneumothorax. There has been interval changes related to mediansternotomy and coronary artery bypass grafting. There is no mediastinal or hilar adenopathy. The esophagus is unremarkable. The heart is normal in size. There are coronary artery calcifications. Valve prosthesis is stable.The thoracic aorta is atherosclerotic without aneurysm. There is no axillary lymphadenopathy. Postsurgical changes of the midline of the chest relatedto recent median sternotomy. No appreciable fluid collection. Visualized upper abdomen reveals atherosclerotic vascular calcification ofthe aorta and major branch vessels. There is diverticulosis, without diverticulitis. There is no acute osseous abnormality. Mild compression deformity of T11 is stable. There is degenerative disc disease. IMPRESSION: 1. Previously documented pulmonary nodules are grossly stable from prior study. A single nodule in the left lower lobe measures 1 mm larger thanon prior study, which does not meet criteria for interval growth. Given the interval stability patient return to yearly screening LD CT. 2. Background of moderate pulmonary emphysema, upper lobe predominant. 3. Several incidental findings as above. Lung-RADS v1.1 category 2: Benign appearance or behavior. Recommendation: Continue annual screening low-dose chest CT in 12 months. THIS IS AN ELECTRONICALLY VERIFIED FINAL REPORT 03/11/2022 7:11 PM - Electronically signed by Linda Wolf M.D. TW: MARIANNE Report ID: [id number] Reading Location: [place] [id number] us Michael Heredia MD IMG CT PROCEDURES Final R esult * US Abdominal Aorta (02/20/2022 9:45 AM CDT) Anatomical Region Laterality Modality Abdomen N/A Ultrasound 02/20/2022 9:51 AM CDT Impressions 02/20/2022 9:51 AM CDT 47 MM DIAMETER MID ABDOMINAL FUSIFORM AORTIC ANEURYSM. NO SIGN OF DISSECTION OR THROMBUS. RECOMMEND ANNUAL FOLLOW-UP ULTRASOUND.. Electronically signed by: Omar Varma M.D. Narrative 02/20/2022 9:51 AM CDT EXAMINATION: US ABDOMINAL AORTA HISTORY: Abdominal aortic aneurysm ORDER DATE: 02/20/2022 9:00 AM COMPARISON: Previous study noted to recommend an 2018 but not available for comparison. TECHNIQUE: Sonogram of the abdominal aorta is performed for purposes of visualization of the aortic outline and measurements obtained at the upper mid and lower abdominal levels. FINDINGS: There is a prominent amount of bowel gas centrally located in the abdomen.. The aorta is approximately 21 mm in diameter in the upper abdomen, 47 mm in diameter in the mid abdomen at 18 mm in diameter in the lower abdomen.. The mid abdominal aortic aneurysm is approximately 7 cm in length. There is some posterior calcification and intimal thickening... Right common iliac artery diameter was 8 10 x 14 mm in cross-section, the left common iliac artery was 12 x 10 mm in cross-section. Procedure Note Omar Varma MD - 02/20/2022 EXAMINATION: US ABDOMINAL AORTA HISTORY: Abdominal aortic aneurysm ORDER DATE: 02/20/2022 9:00 AM COMPARISON: Previous study noted to recommend an 2018 but not available for comparison. TECHNIQUE: Sonogram of the abdominal aorta is performed for purposes of visualization of the aortic outline and measurements obtained at the upper mid and lower abdominal levels. FINDINGS: There is a prominent amount of bowel gas centrally located in the abdomen.. The aorta is approximately 21 mm in diameter in the upper abdomen, 47 mm in diameter in the mid abdomen at 18 mm in diameter in the lower abdomen.. The mid abdominal aortic aneurysm is approximately 7 cm in length. There is some posterior calcification and intimal thickening... Right common iliac artery diameter was 8 10 x 14 mm in cross-section, the left common iliac artery was 12 x 10 mm in cross-section. IMPRESSION: 47 MM DIAMETER MID ABDOMINAL FUSIFORM AORTIC ANEURYSM. NO SIGN OF DISSECTION OR THROMBUS. RECOMMEND ANNUAL FOLLOW-UP ULTRASOUND.. Electronically signed by: Omar Varma M.D. Srinivasan Jones MD IMG US PROCEDURES Final Result * COLONOSCOPY (10/27/2008) Colonoscopy Normal Historical Provider MD HEALTH MAINTENANCE Final Result from Last 3 Months or Most Recently Relevant to Health Maintenance Insurance MEDICARE ADVANTAGE [id number] [place] [address] MEDICARE ADVANTAGE MDCR HMO REF Member Subscriber Plan / Payer (Ef fective 2021-Present) Name:Marcell Rubio Relation to Subscriber:Self Name:Marcell Rubio Payer ID:[id number] (NAIC) Type:[facility] MED[facility] Address: [place] [id number] MEDICARE ADVANTAGE Member Subscriber Plan / Payer (Ef fective 2022-Present) Name:Marcell Rubio Relation to Subscriber:Self Name:Marcell Rubio Payer ID:[id number] (NAIC) Type:[facility] [facility] Address: [place] [phone] Advance Directives For more information, please contact: [phone] * Full Code (Latest Code Status on File) Date Activated Date Inactivated Comments 12/09/2021 4:10 PM 12/15/2021 5:37 PM * Full Code Date Activated Date Inactivated Comments 10/10/2021 11:13 AM 10/10/2021 9:12 PM * Full Code Date Activated Date Inactivated Comments 01/30/2018 11:30 PM 02/03/2018 5:37 PM Care Teams Aviation Engineer Relationship Specialty Start Date End Date Michael Heredia MD [address] [place] [address] [place] [address] PCP - General 04/10/21 Terell Canela DO Cardiovascular Disease 02/01/18 Srinivasan Jones MD Consulting Physician Cardiology 02/03/18 Marietta Aviles MD [address] [place] [address] [address] [place] [id number] Pulmonary Disease 02/03/18 Nany Esquivel MD [address] [place] [address] [address] [place] [address] Surgeon Cardiothoracic Surgery 12/15/21
--- OUTSIDE RECORDS SUMMARY | 2025-01-02 10:53 | XMS_ITS | Referral Summary ---
Author Organization [facility] Address [address] [place] [address] Care Team Providers Care Field Seismologist Name Role Phone Terell Canela DO Unavailable [phone] Srinivasan Jones MD Unavailable [phone] Marietta Aviles MD Unavailable [phone] Michael Heredia MD Primary Care Provider [phone] Nany Esquivel MD Unavailable [phone] Allergies No known active allergies Medications [...] Patient appears mildly motivated toward success. Old [place] (myocardial infarction) 08/15/2019 Mixed hyperlipidemia 08/15/2019 Presence [...] stent H/O non-ST elevation myocardial infarction (NSTE [place]) 03/18/2018 Assessment & Plan (03/18/2018 4:03 PM CDT): Asx. Managed by Cardiology. Coronary artery disease invo lving algaaciq coronary artery of algaaciq heart without angina pectoris 03/18/2018 Assessment & [...] PPV23 10/22/2009 Td, adsorbed 06/15/2005 Tdap 03/18/2018 Social History Tobacco Use Types Packs/Day Years [...] on file Legal Sex Male 7:21 PM [employer]BER [employer] Gender Identity Not on file Sexual Orientation Not on file Last Filed Vital Signs Vital Sign Reading Time Taken Comments Blood Pressure 145/76 07/07/2024 2:02 PM CHAMBER WALKER Pulse 82 07/07/2024 2:02 PM CHAMBER WALKER Temperature 36.6 C (97.9 F) 01/22/2022 11:20 AM CDT Respiratory Rate 16 07/07/2024 2:02 PM CHAMBER WALKER Oxygen Saturation 97% 07/07/2024 2:02 PM CHAMBER WALKER Inhaled Oxygen Concentration - - Weight 83 kg (183 lb) 07/07/2024 2:02 PM CHAMBER WALKER Height 175.3 cm (5' 9) 07/07/2024 2:02 PM CHAMBER WALKER Body Mass Index 27.02 07/07/2024 2:02 PM CHAMBER WALKER Plan of Treatment Not on file Medical Devices Implanted Type Area Jogger Operator Device Identifier Shelf Expiration Date Model / Serial / Lot [employer] Selena [id number] Synergy 3mm 12mm 144cm Radiopaque 1 Access Port Inflation Lumen - [id number] Implanted:Qty: 1 on 02/02/2018 by Srinivasan Jones MD at [facility] Stent [employer] Selena 09/28/2018 [id number] / / [id number] [employer] Selena [id number] Synergy 2.75mm 12mm 144cm Radiopaque 1 Access Port Inflation - [id number] Implanted:Qty: 1 on 02/02/2018 by Srinivasan Jones MD at [facility] Stent [employer] Selena 10/13/2019 [id number] / / [id number] [employer] Sel[employer] [id number] Synergy 2.75mm 8mm 144cm Radiopaque 1 Access Port Inflation Lumen - [id number] Implanted:Qty: 1 on 02/02/2018 by Srinivasan Jones MD at [facility] Stent [employer] Selena 03/09/2018 [id number] / / [id number] Angio-Seal Evolution 6fr Vascular Closure [id number] - [id number] Implanted:Qty: 1 on 10/10/2021 by Srinivasan Jones MD at [facility] [employer] Selena 05/14/2022 [id number] / / [id number] [employer]il [employer] Vascu-Guard 6x1cm Peripheral Patch Vascular Bovine Pericardium [id number] - [id number] Implanted:Qty: 1 on 12/09/2021 by Nany Esquivel MD at [facility] Left: Carotid [employer] 03/14/2025 [id number] / / [id number] Inspiris Resilia Leaflet Aortic Valve 23mm [id number] - [id number] - [id number] Implanted:Qty: 1 on 12/09/2021 by Nany Esquivel MD at [facility] Left: Heart [employer] [id number] 08/07/2025 [id number] / [id number] / Procedures Procedure Name Priority Date/Time Associated [...] Linda Wolf M.D. TW: TW Report ID: [id number] Reading Location: [id number] Procedure Note Linda Wolf MD - 03/11/2022 [...] Linda Wolf M.D. TW: MARIANNE Report ID: [id number] Reading Location: [id number] Michael Heredia MD IMG CT PROCEDURES [...] by: Omar Varma M.D. Srinivasan Jones [place] [facility] [place] Final Result * COLONOSCOPY (10/27/2008) Colonoscopy Normal Historical Provider HEALTH MAINTENANCE Final Result from Last 3 Months or Most Recently Relevant to Health Maintenance Insurance MEDICARE ADVANTAGE MEDICARE ADVANTAGE MDCR HMO REF [facility] MEDICARE ADVANTAGE Advance Directives For more information, please contact: [phone] * Full Code (Latest Code Status on File) Date Activated Date Inactivated Comments 12/09/2021 4:10 PM 12/15/2021 5:37 PM * Full Code Date Activated Date Inactivated Comments 10/10/2021 11:13 AM 10/10/2021 9:12 PM * Full Code Date Activated Date Inactivated Comments 01/30/2018 11:30 PM 02/03/2018 5:37 PM Care Teams Field Seismologist Relationship Specialty Start Date End Date Michael Heredia MD [address] [place] [address] [place] [address] PCP - General 04/10/21 Terell Canela DO Cardiovascular Disease 02/01/18 Srinivasan Jones MD Consulting Physician Cardiology 02/03/18 Marietta Aviles MD [address] [place] [address] [place] [address] Pulmonary Disease 02/03/18 Nany Esquivel MD [address] [facility] [address] [place] [address] Surgeon Cardiothoracic Surgery 12/15/21
--- OUTSIDE RECORDS SUMMARY | 2025-01-02 10:54 | XMS_ITS | Patient Health Record ---
Author Organization [facility] Address [address] [facility] [address] [place] [address] Care Team Providers Care Primary Teaching Assistant Name Role Phone Ar Almonte Unavailable [phone] Reason For Referral No Information Medications Medication SIG (Take, Route, Frequency, Duration) Notes Start Date End Date Status VENLAFAXINE HCL ER 37.5 MG CP24 *Reorder from [employer] for eRx and Interaction Alerts* Active LIOTHYRONINE SODIUM 5 MCG TABS *Reorder from [employer] for eRx and Interaction Alerts* Active ATORVASTATIN CALCIUM 40 MG TABS *Reorder from [employer] for eRx and Interaction Alerts* Active CLOPIDOGREL 75 MG TABS *Reorder from [employer] for eRx and Interaction Alerts* Active LISINOPRIL 10 MG TABS *Reorder f rom [employer] for eRx and Interaction Alerts* Active ESCITALOPRAM OXALATE 10 MG TABS *Reorder from [employer] for eRx and Interaction Alerts* Active Plan Of Treatment No Information Insurance Providers Payer Name Payer Address Payer Phone Subscriber Number Group Number Insured Name Patient Relationship to Insured Coverage Start Date Coverage End Date [facility] [address] [place] [phone] [id number] MINAL SHULKA Self - patient is the insured
[2025-01-02 19:55] LABS: Hematocrit 41.9 % (42.0-52.0); Hemoglobin 13.4 g/dL (14.0-18.0); Mean Corpuscular HGB Conc 32.0 g/dl (32-36); Mean Corpuscular Hemoglobin 29.7 pg (26-34); Mean Corpuscular Volume 92.9 fl (80-100); Platelet Count Result 258 k/mm3 (150-375); Red Blood Count 4.51 M/mm3 (4.6-6.20); White Blood Count 8.2 K/mm3 (4.5-10.0)
[2025-01-02 20:05] LABS: Alanine Aminotransferase 19 U/L (6-50); Albumin Level 4.2 g/dL (3.5-5.1); Alkaline Phosphatase 47 U/L (38-126); Anion Gap 3 mmol/L (4-12); Aspartate Amino Transferase 70 U/L (17-59); Bilirubin,Total 0.5 mg/dL (0.2-1.3); Blood Urea Nitrogen 22 mg/dL (9-20); Calcium 9.5 mg/dL (8.4-10.2); Carbon Dioxide 28 mmol/L (22-30); Chloride 108 mmol/L (98-107); Cholesterol 121 mg/dL (0-200); Estimated Glomerular Filt Rate > 60; Glucose 98 mg/dL (65-110); HDL Direct 34 mg/dL; Potassium 5.4 mmol/L (3.4-5.0); Sodium 139 mmol/L (137-145); Total Protein 6.8 g/dL (6.3-8.2); Triglycerides 83 mg/dL (<150)
[2025-01-02 20:49] LABS: Thyroid Stimulating Hormone Reflex 2.060 uIU/mL (0.465-4.68)
== END 2025-01-02 10:49 | disposition home or self-care (01) ==
PROVIDERS: PCP Nurse Practitioner Family; Visit Provider Nurse Practitioner Family
DX: F32.A Depression, unspecified (principal); I10 Essential (primary) hypertension; I35.0 Nonrheumatic aortic (valve) stenosis; Z95.5 Presence of coronary angioplasty implant and graft; I73.9 Peripheral vascular disease, unspecified; E03.9 Hypothyroidism, unspecified; E55.9 Vitamin D deficiency, unspecified; R41.89 Other symptoms and signs involving cognitive functions and awareness; J44.9 Chronic obstructive pulmonary disease, unspecified; R91.8 Other nonspecific abnormal finding of lung field; F17.200 Nicotine dependence, unspecified, uncomplicated; E78.5 Hyperlipidemia, unspecified
CPT/HCPCS: 36415; 80053; 80061; 82306; 84443; 85027